=== PATIENT | female | born 1980 | race Caucasian/White ===

== ENCOUNTER 2022-06-08 13:21 | Emergency (ER) | payer OTHER, BC, SELFPAY ==
[2022-06-08 13:42] VITALS: BP 127/89; PULSE 104; RESP 26; TEMP 36.4; O2SAT 97; BMI 31.0
--- NOTE | 2022-06-08 13:52 | ED.GENADULT ---
HPI - General Adult General Time Seen by Provider: 13:52 Date Seen: 06/08/22 Chief complaint: Back Injury/Pain Stated complaint: Back Injury Time Seen by Provider: 06/08/22 13:30 Source: patient Mode of arrival: ambulatory Limitations: physical limitation History of Present Illness HPI narrative: Patient is a 42-year-old female who was at work and pulling a [place] and felt a snapping sensation in her low back. She has had significant pain in her back. Denies bowel or bladder incontinence fever chills perineal numbness. Denies significant lower extremity symptoms or pain is across her lumbar spine. She reports a back injury last year she heard a couple of ribs. That does not feel in the same area at this time. She has been able to ambulate. She has good amount of discomfort. Related Data Previous Rx's Medication Instructions Recorded albuterol sulfate 90 mcg/actuation 2 puff inhalation Q6H PRN 06/07/22 aerosol inhaler shortness of breath or wheezing #8.5 grams prednisone 20 mg tablet 20 mg PO BID #10 tabs 06/07/22 hydrocodone 7.5 mg-acetaminophen 1 tab PO Q6-8H PRN pain #14 tabs 06/08/22 325 mg tablet ketorolac 10 mg tablet 10 mg PO Q8H PRN pain 3 days #10 06/08/22 tabs Allergies Allergy/AdvReac Type Severity Reaction Status Date / Time Penicillins Allergy Unknown Anaphylaxis Verified 06/07/22 18:16 Review of Systems Status of ROS: Reports: 6 or more systems reviewed and unremarkable except as noted in History and below PFSH PFS Social History Smoking Status: Former smoker Non-prescribed substance use: denies use Exam Narrative: Exam Narrative: Objective vital signs unremarkable The patient is crying, in distress moderate She describes pain across her lumbar spine just above her belt line. Does not involve the chest her upper thoracic spine Normal strength in negative straight leg raise in the lower extremities, normal sensation. Patient has not had incontinence of bowel or bladder Const: Vital Signs, click to edit/add: Vital Signs - 24 hr 06/08/22 13:42 Temperature 97.6 F Pulse Rate [Left P ulse Oximeter] 104 H Respiratory Rate 26 H Blood Pressure [Ri ght Upper Arm] 127/89 Pulse Oximetry 97 Oxygen Delivery Me thod Room Air Course Vital Signs Vital signs: Initial Vital Signs Temperature 97.6 F 06/08/22 13:42 Temperature Source Temporal Artery Scan 06/08/22 13:42 Pulse Rate 104 H 06/08/22 13:42 Pulse Rhythm 06/08/22 13:42 Respiratory Rate 26 H 06/08/22 13:42 Blood Pressure 127/89 06/08/22 13:42 Blood Pressure Mean 101 06/08/22 13:42 Pulse Oximetry 97 06/08/22 13:42 Oxygen Delivery Method 06/08/22 13:42 Vital Signs Temperature 97.6 F 06/08/22 13:42 Pulse Rate 104 H 06/08/22 13:42 Respiratory Rate 26 H 06/08/22 13:42 Blood Pressure 127/89 06/08/22 13:42 Pulse Oximetry 97 06/08/22 13:42 Oxygen Delivery Method 06/08/22 13:42 Temperature 97.6 F 06/08/22 13:42 Pulse Rate 104 H 06/08/22 13:42 Respiratory Rate 26 H 06/08/22 13:42 Blood Pressure 127/89 06/08/22 13:42 Pulse Oximetry 97 06/08/22 13:42 Oxygen Delivery Method 06/08/22 13:42 Medical Decision Making MDM Narrative Medical decision making narrative: The patient is a 40 year white female who strained her low back and will get IM morphine 10 mg will get 60 mg IM Toradol. She has a lengthy form to fill out regarding her work ability in work injury. Which will be completed. The patient will likely be asked to ice rest observation off work for few days until primary care follow-up in 3-4 days. I would not think that imaging at this time would be appropriate given she has no radicular symptoms, she did not fall she simply strained her back. This could be done if she fails to improve or has other concerns. She started prednisone today as well for asthma she can continue that as well will send her home on [place] and Toradol, icing, gentle position of comfort, follow up with primary care in 3 days Discharge Plan Discharge Clinical Impression: Acute low back pain Patient Disposition: Home w/ Parent or Adult Condition: Stable Additional Instructions: Rest, light activity, icing to the back 15 2 minutes or so 3 or 4 times a day, Toradol and [place] as needed for pain control, continue the prednisone she started for her asthma. Follow-up with primary care in the next 3-4 days. Off work until that time. No written to that effect. Return to ED as needed. Activity Level: Light activity Activity Detail: Off work for 3-4 days until follow-up with primary care Discharge Diet: Regular Prescriptions: New hydrocodone-acetaminophen 7.5-325 mg tablet 1 tab PO Q6-8H PRN (Reason: pain) Qty: 14 0RF ketorolac 10 mg tablet 10 mg PO Q8H PRN (Reason: pain) 3 Days Qty: 10 0RF No Action prednisone 20 mg tablet 20 mg PO BID Qty: 10 0RF albuterol sulfate 90 mcg/actuation HFA aerosol inhaler 2 puff inhalation Q6H PRN (Reason: shortness of breath or wheezing) Qty: 8.5 1RF Follow Up/Referrals: Provider,Not a Local [Primary Care Provider] - Stand Alone Forms: eReceiptsth Info Instructions
[2022-06-08] MEDS: MORPHINE 10 MG/ML inj IM (14:00)
[2022-06-08] MEDS: KETOROLAC 60 MG/2 ML inj IM (14:02)
--- NOTE | 2022-06-08 14:46 | ED.NURSE ---
was able to ambulate. does feel better. pain is persisting yet. understands dc instructions.
== END 2022-06-08 14:49 | disposition home or self-care (01) ==
PROVIDERS: Emergency Provider Family Medicine
DX: M54.50 Low back pain, unspecified (principal)
CPT/HCPCS: 96372; 99283; 99284; J1885; J2270

== ENCOUNTER 2023-12-21 09:36 | Outpatient (CLI) | payer BC, SELFPAY | END 2023-12-21 09:37 | disposition home or self-care (01) | PROVIDERS: PCP Emergency Medicine; Visit Provider Emergency Medicine | DX: E78.5 Hyperlipidemia, unspecified (principal); Z13.1 Encounter for screening for diabetes mellitus | CPT/HCPCS: 80061; 82947 ==

== ENCOUNTER 2024-03-07 08:45 | Outpatient (CLI) | payer BC, SELFPAY | END 2024-03-07 08:46 | disposition home or self-care (01) | LOC: NFLDREF 03-08 08:47 | PROVIDERS: PCP Emergency Medicine; Referring Provider Emergency Medicine; Visit Provider Emergency Medicine | DX: R10.13 Epigastric pain (principal) | CPT/HCPCS: 87338 ==

== ENCOUNTER 2024-05-07 09:45 | Outpatient (CLI) | payer BC, SELFPAY | END 2024-05-07 09:46 | disposition home or self-care (01) | PROVIDERS: PCP Emergency Medicine; Visit Provider Emergency Medicine | DX: R10.13 Epigastric pain (principal) | CPT/HCPCS: 80053; 83690; 87086 ==

== ENCOUNTER 2024-05-14 07:02 | Outpatient (CLI) | payer BC, SELFPAY ==
--- NOTE | 2024-05-14 07:15 | CRLHL7_ITS ---
For Patients: As a result of the Century Cures Act, medical imaging exams and procedure reports are released immediately into your electronic medical record. You may view this report before your referring provider. If you have questions, please contact your health care provider. INDICATION: Epigastric pain TECHNIQUE: Conventional two-dimensional grayscale ultrasound of the right upper quadrant. COMPARISON: None FINDINGS: The gallbladder is normal, with no evidence of stones. No gallbladder wall thickening or pericholecystic fluid is demonstrated. The patient is reportedly not tender over the gallbladder. No biliary ductal dilation is evident. The common bile duct measures 2 mm. The liver is normal in size, shape and echogenicity. A 3.3 x 2.8 x 1.8 cm mass is demonstrated within or adjacent to the anterior pancreas at the junction of the body and tail. The pancreatic tail is obscured by gas. The pancreas is otherwise unremarkable. The right kidney is unremarkable. The visualized portion of the abdominal aorta and inferior vena cava are negative. IMPRESSION: 1. 3.3 x 2.8 x 1.8 cm pancreatic mass at the junction of the body and tail versus adjacent mildly enlarged lymph node. Abdomen/pelvis CT with particular attention to the pancreas recommended. 2. Normal gallbladder and bile ducts. Dictated by Obed Law MD @ 05/14/2024 9:32:16 AM (Electronically Signed)
== END 2024-05-14 07:03 | disposition home or self-care (01) ==
LOC: US 07:02
PROVIDERS: PCP Emergency Medicine; Visit Provider Emergency Medicine
DX: R10.13 Epigastric pain (principal); K86.9 Disease of pancreas, unspecified
CPT/HCPCS: 76705

== ENCOUNTER 2024-05-17 07:25 | Outpatient (CLI) | payer BC, SELFPAY | END 2024-05-17 07:26 | disposition home or self-care (01) | LOC: CT 07:25 | PROVIDERS: PCP Emergency Medicine; Visit Provider Emergency Medicine | DX: K86.89 Other specified diseases of pancreas (principal); K76.89 Other specified diseases of liver; N83.202 Unspecified ovarian cyst, left side | CPT/HCPCS: 74177; Q9967 ==

== ENCOUNTER 2024-05-30 09:43 | Outpatient (CLI) | payer BC, SELFPAY ==
--- NOTE | 2024-05-30 11:39 | P.ANES_ITS ---
Anesthesia Charges Start Date/Time Anesthesia Start Date: 05/30/24 Anesthesia Start Time: 10:53 Stop Date/Time Anesthesia Stop Date: 05/30/24 Anesthesia Stop Time: 11:31 Coding CPT Codes CPT Codes: ANES UPR LWR GI NDSC PX - 07969 ([id number]) P2 - PATIENT W/MILD SYST DISEASE, QX - CYTOLOGIST SVC W/ MD MED DIRECTION, QK - HOT BOX SPOTTER 2-4 CNCRNT ANES PROC
--- NOTE | 2024-05-30 11:39 | W.ANESCHARGE ---
Anesthesia Charges Start Date/Time Anesthesia Start Date: 05/30/24 Anesthesia Start Time: 10:53 Stop Date/Time Anesthesia Stop Date: 05/30/24 Anesthesia Stop Time: 11:31 Coding CPT Codes CPT Codes: ANES UPR LWR GI NDSC PX - 29715 ([id number]) P2 - PATIENT W/MILD SYST DISEASE, QX - PROVIDER RELATIONS ADVOCATE SVC W/ MD MED DIRECTION, QK - GAMBLING SUPERVISOR 2-4 CNCRNT ANES PROC
--- NOTE | 2024-05-30 11:50 | P.ANES_ITS ---
Anesthesia Charges Start Date/Time Anesthesia Start Date: 05/30/24 Anesthesia Start Time: 10:53 Stop Date/Time Anesthesia Stop Date: 05/30/24 Anesthesia Stop Time: 11:31 Coding CPT Codes CPT Codes: ANES UPR LWR GI NDSC PX - 08740 ([id number]) P2 - PATIENT W/MILD SYST DISEASE, QK - PATCHER 2-4 CNCRNT ANES PROC, QX - ADMINISTRATION MANAGER SVC W/ MD MED DIRECTION
--- NOTE | 2024-05-30 11:50 | W.ANESCHARGE ---
Anesthesia Charges Start Date/Time Anesthesia Start Date: 05/30/24 Anesthesia Start Time: 10:53 Stop Date/Time Anesthesia Stop Date: 05/30/24 Anesthesia Stop Time: 11:31 Coding CPT Codes CPT Codes: ANES UPR LWR GI NDSC PX - 90037 ([id number]) P2 - PATIENT W/MILD SYST DISEASE, QK - WORKFORCE DEVELOPMENT SPECIALIST 2-4 CNCRNT ANES PROC, QX - AUTO CLAIMS ADJUSTER SVC W/ MD MED DIRECTION
== END 2024-05-30 09:44 | disposition home or self-care (01) ==
LOC: OP CLINIC 09:43
PROVIDERS: PCP Emergency Medicine; Visit Provider Surgery
DX: Z12.11 Encounter for screening for malignant neoplasm of colon (principal); D12.2 Benign neoplasm of ascending colon; K21.9 Gastro-esophageal reflux disease without esophagitis
CPT/HCPCS: 00813; 43239; 45385; 88305; 88342; J2704; J3010

== ENCOUNTER 2024-12-03 08:29 | Outpatient (CLI) | payer BC, SELFPAY | END 2024-12-03 08:30 | disposition home or self-care (01) | PROVIDERS: Visit Provider Physician Assistant | DX: N91.2 Amenorrhea, unspecified (principal) | CPT/HCPCS: 84146; 84443 ==

== ENCOUNTER 2024-12-17 08:00 | Outpatient (CLI) | payer BC, SELFPAY | END 2024-12-17 08:01 | disposition home or self-care (01) | LOC: NFLDREF 12-20 14:17 | PROVIDERS: Visit Provider Physician Assistant | DX: N95.1 Menopausal and female climacteric states (principal) | CPT/HCPCS: 83001 ==

== ENCOUNTER 2024-12-24 08:22 | Outpatient (CLI) | payer BC, SELFPAY ==
[2024-12-25 22:44] LABS: HPV Source Cervix
[2024-12-30 09:27] LABS: Pap Test Digital Imaging Done
== END 2024-12-24 08:23 | disposition home or self-care (01) ==
PROVIDERS: Visit Provider Physician Assistant
DX: Z12.4 Encounter for screening for malignant neoplasm of cervix (principal)
CPT/HCPCS: 87624; 87625; 88141; 88142; 88175